=== PATIENT | female | born 1995 | race Caucasian/White ===

== ENCOUNTER → 2020-06-28 18:10 | Observation (INO) ==
[2020-06-28 17:12] LABS: Hematocrit 35.8 % (35.3-44.9); Hemoglobin 12.1 g/dL (11.5-15.4); Mean Corpuscular HGB Conc 33.8 g/dL (31.6-35.5); Mean Corpuscular Hemoglobin 32.1 pg (28.0-33.3); Platelet Count 209 K/mcL (140-400); Red Blood Count 3.77 M/mcL (3.82-4.97); White Blood Count 10.5 K/mcL (4.3-11.1)
[2020-06-28 17:17] LABS: Protein/Creatinine Ratio,Urine 0.12 mg/mg (0.00-0.20)
[2020-06-28 17:28] LABS: Alanine Aminotransferase 15 Units/L (7-52); Albumin 3.6 g/dL (3.5-5.7); Albumin/Globulin Ratio 1.6 (1.1-2.2); Alkaline Phosphatase 63 Units/L (34-104); Aspartate Amino Transferase 18 Units/L (13-39); BUN/Creatinine Ratio 13 (6-26); Bilirubin,Total 0.3 mg/dL (0.3-1.0); Blood Urea Nitrogen 8 mg/dL (6-20); Carbon Dioxide 24 mEq/L (23-29); Chloride 107 mEq/L (98-107); Globulin 2.3 g/dL (2.4-3.5); Glucose 105 mg/dL (70-105); Lactate Dehydrogenase 128 Units/L (140-271); Osmolality,Calculated 285 (280-300); Potassium 3.4 mEq/L (3.5-5.1); Sodium 138 mEq/L (136-145); Total Protein 5.9 g/dL (6.4-8.9); Uric Acid 2.3 mg/dL (2.3-7.6); eGFR For African Americans > 60 (> 60); eGFR For Non-African Americans > 60 (> 60)
[2020-06-28 17:35] LABS: Bacteria,Urine Moderate per hpf (None-Few); Bilirubin,Urine Negative (Negative); Blood,Urine Negative (Negative); Clarity,Urine Clear (Clear); Color,Urine Colorless (Yellow); Glucose,Urine (UA) Normal (Normal); Ketones,Urine Negative (Negative); Leukocyte Esterase,Urine Small (Negative); Nitrite,Urine Negative (Negative); PH,Urine 6.5 pH Units (5.0-8.0); Protein,Urine Negative (Neg-Trace); RBC,Urine 0-3 per hpf (0-3); Specific Gravity,Urine 1.007 (1.010-1.025); Squamous Epithelial Cell,Urine Few per hpf (None-Few); Urobilinogen,Urine Normal (Normal)
== END | disposition home or self-care (01) ==
LOC: 1NENULAB
PROVIDERS: ADMIT Student in an Organized Health Care Education/Training Program; ATTEND Student in an Organized Health Care Education/Training Program

== ENCOUNTER 2020-09-15 05:57 | Inpatient (IN) ==
[2020-09-15] MEDS ORDERED: Lidocaine 1% 20 ML MDV INFILT PRN (06:12)
[2020-09-15] MEDS ORDERED: Naloxone 0.4 MG/ML INJ IVP PRN (06:12)
[2020-09-15] MEDS ORDERED: Metoclopramide 10 MG/2 ML VIAL IVP PRN (06:12)
[2020-09-15] MEDS ORDERED: Famotidine 20 MG/2 ML VIAL IVP PRN (06:12)
[2020-09-15] MEDS ORDERED: miSOPROStoL 25 MCG TABLET PO PRN (06:12)
[2020-09-15] MEDS ORDERED: *HR* Nalbuphine 10 MG/ML AMPUL IV PRN (06:12)
[2020-09-15] MEDS ORDERED: Ringers Solution, Lactated 1,000 ML IVC SCH (06:15)
[2020-09-15 06:53] LABS: Basophils % 0.3 %; Eosinophils # 0.1 K/mcL (0.0-0.6); Eosinophils % 0.5 %; Hematocrit 38.4 % (35.3-44.9); Hemoglobin 13.2 g/dL (11.5-15.4); Immature Granulocytes % 0.6 % (0-4); Lymphocytes # 1.5 K/mcL (0.6-4.6); Lymphocytes % 12.4 %; Mean Corpuscular HGB Conc 34.4 g/dL (31.6-35.5); Mean Corpuscular Hemoglobin 32.4 pg (28.0-33.3); Mean Corpuscular Volume 94.3 fL (83.0-100.0); Mean Platelet Volume 11.5 fL (9.4-12.4); Monocytes # 0.8 K/mcL (0.0-1.3); Monocytes % 6.5 %; Neutrophils # 9.6 K/mcL (1.6-8.9); Platelet Count 170 K/mcL (140-400); Red Blood Count 4.07 M/mcL (3.82-4.97); Red Cell Distribution Width 12.8 % (11.5-14.5); Segmented Neutrophils % 79.7 %
[2020-09-15 07:24] LABS: Amphetamine Screen,Urine Negative ng/mL (Cutoff=1000); Barbiturate Screen,Urine Negative ng/mL (Cutoff=200); Benzodiazepines Screen,Urine Negative ng/mL (Cutoff=200); Cannabinoid Screen,Urine Negative ng/mL (Cutoff = 50); Cocaine Screen,Urine Negative ng/mL (Cutoff= 300); Opiate Screen,Urine Negative ng/mL (Cutoff=300); Phencyclidine Screen,Urine Negative ng/mL (Cutoff=25)
[2020-09-15] MEDS ORDERED: EPHEDrine 50 MG/ML VIAL IVP PRN (09:28)
[2020-09-15] MEDS ORDERED: *HR* FentaNYL (PF) 100 MCG/2 ML VIAL EP ONE (09:28)
[2020-09-15] MEDS ORDERED: Bupivacaine-MPF 0.25% 10 ML VIAL EP ONE (09:28)
[2020-09-15] MEDS ORDERED: Epidural Premix (fent/bupiv) 110 ML EP SCH (09:30)
[2020-09-15] MEDS ORDERED: Oxytocin 20 units/ LR 1000 mL 20 UNIT/1,000 ML BAG IVC SCH ×2 (11:15→18:44)
[2020-09-15 12:58] LABS: Influenza A PCR Negative (Negative); Influenza B PCR Negative (Negative); Resp. Syncytial Virus PCR Negative (Negative)
[2020-09-15 13:20] LABS: SARS-CoV-2 by PCR (In House) Negative (Negative)
[2020-09-15] MEDS ORDERED: Ropivacaine/PF 0.2% 20 ML VIAL ONE (16:01)
[2020-09-15] MEDS ORDERED: *HR* FentaNYL (PF) 100 MCG/2 ML VIAL ONE (16:09)
[2020-09-15] MEDS ORDERED: Methylergonovine 0.2 MG/ML AMPUL IM ONE (16:56)
[2020-09-15] MEDS ORDERED: Measles/Mumps/Rubella Vacc 0.5 ML VIAL SQ PRN (18:44)
[2020-09-15] MEDS ORDERED: Lanolin 7 G OINT...G. TP PRN (18:44)
[2020-09-15] MEDS ORDERED: Rho Immune Globulin 1,500 UNIT SYRINGE IM PRN (18:44)
[2020-09-15] MEDS ORDERED: Benzocaine/Menthol 56 GM AEROSOL SPRAY TP PRN (18:44)
[2020-09-15] MEDS ORDERED: Acetaminophen 325 MG TABLET PO PRN (18:44)
[2020-09-15] MEDS: Ibuprofen 600 MG TABLET PO PRN (22:03)
[2020-09-16 05:18] LABS: Basophils % 0.1 %; Eosinophils % 0.1 %; Hematocrit 31.1 % (35.3-44.9); Immature Granulocytes % 0.4 % (0-4); Lymphocytes # 1.4 K/mcL (0.6-4.6); Lymphocytes % 10.1 %; Mean Corpuscular HGB Conc 34.7 g/dL (31.6-35.5); Mean Corpuscular Hemoglobin 32.9 pg (28.0-33.3); Mean Corpuscular Volume 94.8 fL (83.0-100.0); Mean Platelet Volume 11.6 fL (9.4-12.4); Monocytes # 1.3 K/mcL (0.0-1.3); Monocytes % 9.8 %; Neutrophils # 10.7 K/mcL (1.6-8.9); Platelet Count 156 K/mcL (140-400); Red Blood Count 3.28 M/mcL (3.82-4.97); Red Cell Distribution Width 12.9 % (11.5-14.5); Segmented Neutrophils % 79.5 %; White Blood Count 13.5 K/mcL (4.3-11.1)
[2020-09-16 05:24] LABS: Hemoglobin 10.8 g/dL (11.5-15.4)
[2020-09-16] MEDS: Prenatal Vit/FA 1 EACH TABLET PO SCH (09:25)
[2020-09-16] MEDS: Ibuprofen 600 MG TABLET PO PRN ×2 (09:26→20:02)
[2020-09-17] MEDS: Prenatal Vit/FA 1 EACH TABLET PO SCH (08:02)
[2020-09-17] MEDS: Ibuprofen 600 MG TABLET PO PRN (08:02)
[2020-09-17 11:47] VITALS: BP 129/70
== END 2020-09-17 12:15 | disposition home or self-care (01) | DRG 807 ==
LOC: 1NENULAB 05:57 → 1NENUOBS 20:58
PROVIDERS: ADMIT Obstetrics & Gynecology; ATTEND Obstetrics & Gynecology